=== PATIENT | female | born 1980 | race Caucasian/White ===

== ENCOUNTER 2019-02-17 21:29 | Emergency (ER) | payer MEDICAID, SELFPAY ==
[2019-02-17 21:31] VITALS: BP 156/94; PULSE 67; RESP 18; TEMP 36.6; O2SAT 99; BMI 44.2
--- NOTE | 2019-02-17 21:45 | CT_ITS ---
STUDY: CT ABDOMEN AND PELVIS WITHOUT CONTRAST REASON FOR EXAM: Female, 38 years old. Right flank pain RADIATION DOSAGE (If Supplied By Facility): CTDIvol = ( 22.23 ) mGy, DLP = ( 1188.42 ) mGycm TECHNIQUE: Transaxial images were obtained from the dome of the diaphragm to the symphysis pubis without oral contrast, and without intravenous contrast. Sagittal and coronal images were reconstructed. Individualized dose optimization techniques were used for this CT. COMPARISON: None. FINDINGS: The visualized lung bases demonstrate granulomatous nodules. The visualized portions of the heart are within normal limits. Enlarged liver. Normal gallbladder and extrahepatic biliary system. Normal spleen. Normal pancreas. Normal bilateral adrenal glands. 5 mm lower pole nonobstructive stone in the right kidney. 3 mm lower pole nonobstructive stone in the left kidney. Normal visualized stomach. Normal small intestine. Normal colon. The appendix is visualized and appears normal. Normal abdominal aorta. Normal inferior vena cava. Normal retroperitoneum. Normal urinary bladder. 3.5 cm fatty umbilical hernia Normal osseous structures. CT/Abdomen/Pelvis without Cont IMPRESSION: Nonobstructive bilateral renal calculi. Fatty umbilical hernia. Enlarged liver. Electronically Signed: Ajay Gallego DO at 22:34 EST Tel [phone], Service support ,
--- NOTE | 2019-02-17 21:57 | ED.DCSUM_ITS ---
- ER Visit Summary Date of Service: 02/17/19 Chief Complaint: Flank pain History of Present Illness: The patient is a 38 F with right-sided flank pain that started suddenly today. Pain radiates down into her right groin. She has a history of kidney stones, and is concerned they are moving. She was told that on prior imaging 1 of her stones was as large as 8 mm. She has never had lithotripsy, stenting, or other procedures. She does follow with Dr. Ivey. She reports some associated nausea but denies any other GI symptoms. Denies any urinary symptoms. Denies fevers. History of hysterectomy in the past. Physical Examination: Afebrile and vital signs unremarkable. Patient is pacing in the room and appears uncomfortable. Right CVA tenderness. Right flank tenderness. Otherwise exam unremarkable. Test Results: Labs, urine, CT pending. Emergency Department Course and Treatment: Patient was treated with fluids, Toradol, Phenergan while awaiting results of imaging. White count 11.9. Metabolic panel unremarkable. Urinalysis unremarkable. No signs of infection or bleeding. CT showed an enlarged liver, but the gallbladder and ducts were unremarkable. Spleen and pancreas normal. There is nonobstructing bilateral renal calculi. No evidence of hydronephrosis or hydroureter. I do not believe these are causing her symptoms. Appendix was visualized and is normal. She has a fatty umbilical hernia. I do not believe this is contributing to her symptoms. On reevaluation, patient did not really have any improvement. She was treated with morphine and Norflex. I suspect this may be myofascial pain. Patient's work-up and vital signs are reassuring. She will be referred for outpatient care. Continue anti-inflammatories. Short course of [place]. Muscle relaxers. Return for any new or worsening issues. Treatment Plan: As above Disposition: Discharge Impression: 1. Right flank pain This note was generated with [employer] dictation software. It may contain incorrect words, spelling, and punctuation that were not noted in review of the chart prior to signing ED Disposition - Plan for ED Patient: Referrals: NOT,DEFINED [NON-STAFF] -
[2019-02-17] MEDS: 0.9% Normal Saline 1,000 ML 1000 ML IV (22:03)
[2019-02-17] MEDS: proMETHazine 25 MG/ML Syringe 6.25 MG IV (22:04)
[2019-02-17] MEDS: Ketorolac 30 MG/ML Syringe IV (22:04)
[2019-02-17 22:10] LABS: Red Blood Cells-Urine 0 SEEN /hpf (0-5)
[2019-02-17 22:13] LABS: Absolute Neutrophil Count 5.3 X10^3/uL (2.0-7.7); Basophil# 0.04 X10^3/uL; Basophil% 0.3 % (0-1); Eosinophil# 0.21 X10^3/uL; Eosinophils% 1.8 % (0-5); Hematocrit 37.4 % (37-47); Hemoglobin 12.2 g/dL (12.0-15.0); Lymphocyte % 46.4 % (19-41); Mean Corp Hgb Conc 32.6 g/dL (32-36); Mean Corpuscular Hgb 29.4 pg (27.0-32.0); Mean Corpuscular Volume 90.1 fL (81-99); Mean Platelet Vol. 10.9 fl (6.2-12.0); Monocyte# 0.82 X10^3/uL; Monocyte% 6.9 % (0-10); NRBC Flagged by Analyzer 0 % (0-5); Neutrophil # 5.26 X10^3/uL (2.7-7.7); Neutrophil % 44.4 % (47-70); POSITIVE DIFFERENTIAL YES; Platelet Count 284 K/mm3 (150-450); RBC Distribution Width CV 13.2 % (11.6-14.6); RBC Distribution Width SD 43.6 fl (35.1-43.9); Red Blood Count 4.15 M/mm3 (4.2-5.4); White Blood Count 11.9 K/mm3 (4.4-11.0)
[2019-02-17 22:15] LABS: Differential Indicated SCAN CRITERIA MET
[2019-02-17 22:15] LABS: Color, Urine Yellow (Yellow); Glucose, Dipstick Normal (Normal); Ketone-Dipstick Negative (Negative); Leukocyte Esterase-Dipstick Negative /ul (Negative); Nitrite-Dipstick Negative (Negative); Occult Blood-Urine 10 /ul (Negative); Protein-Dipstick Negative (Negative); Urine Bilirubin Dipstick Negative (Negative); Urine Clarity Clear (Clear); Urine Urobilinogen Normal (Normal)
[2019-02-17 22:23] LABS: Anion Gap 7 (5-15); BUN 14 mg/dL (7-18); BUN/Creat Ratio 23.8 RATIO (10-20); Calcium,Total 8.8 mg/dL (8.5-10.1); Chloride 108 mmol/L (98-107); Creatinine, Serum 0.59 mg/dL (0.55-1.02); EST Glomerular Filtration Rate 122 mL/min (>60); Est Glom Filt Rate - Afr Amer 148 mL/min (>60); Estimated Creatinine Clearance 107.99 ml/min; Glucose 88 mg/dL (74-106); Potassium 3.8 mmol/L (3.5-5.1); Sodium Level 141 mmol/L (136-145)
[2019-02-17 22:26] LABS: Bacteria RARE /hpf (None Seen); Mucous, Urine RARE /hpf (<or=2+); Squamous Epithelial Cells - UA 0-5 SEEN /hpf (5-10); White Blood Cells 0-5 SEEN /hpf (0-5)
[2019-02-17 22:31] LABS: Differential Comment SCANNED
--- NOTE | 2019-02-17 22:43 | DCINST.ED_ITS ---
ED Disposition - Plan for ED Patient: Instructions: FLANK PAIN, Uncertain Cause Prescriptions: cycloBENZAPRine HCl [Flexeril] 10 mg PO TID PRN #20 tab PRN Reason: Muscle Spasm Prescription Printed Hydrocodone Bitart/Apap 5-325 [[place] 5MG-325MG] 1 tab PO Q6H PRN PRN 2 Days #8 tab PRN Reason: Pain Prescription Printed Referrals: [facility] [NON-STAFF] - Additional Instructions: Follow up with [facility] if you need a PCP
[2019-02-17] MEDS: Morphine 4 MG/ML Syringe IV (22:47)
[2019-02-17] MEDS: Orphenadrine 60 MG/2 ML Ampul IM (22:48)
[2019-02-17 23:14] VITALS: BP 120/52; PULSE 60; RESP 16; O2SAT 99
== END 2019-02-17 23:15 | disposition home or self-care (01) ==
LOC: ED 22:05
PROVIDERS: Emergency Provider Emergency Medicine; Family Provider Nurse Practitioner Family; PCP Nurse Practitioner Family
DX: R10.9 Unspecified abdominal pain (principal); K42.9 Umbilical hernia without obstruction or gangrene; N20.0 Calculus of kidney; Z87.442 Personal history of urinary calculi; Z90.710 Acquired absence of both cervix and uterus; Z72.0 Tobacco use
CPT/HCPCS: 74176; 80048; 81001; 85025; 99284; J7030; A4216

== ENCOUNTER 2019-03-15 08:06 | Day surgery (SDC) | payer MEDICAID, SELFPAY ==
[2019-03-15 08:38] VITALS: BP 113/57; PULSE 66; RESP 16; TEMP 36.3; O2SAT 99; BMI 46.8
[2019-03-15] MEDS: Lactated Ringers 1,000 ML 100 ML IV (08:58)
--- NOTE | 2019-03-15 10:39 | PCM.OPRPT ---
Problem List (1) Right renal stone Status: Acute (2) Right flank pain Status: Acute Report of Operation Date of Procedure: 03/15/19 Pre-Operative Diagnosis: Right renal calculus, right flank pain Post-Operative Diagnosis: same, ureteral stricture Surgery/Procedure Performed:: cystoscopy, right ureteroscopy, right ureteral stent insertion Type of Anesthesia:: General Description of Procedure: The patient is a 38-year-old female with a right renal calculus and continued intermittent severe right flank pain. We discussed in the office that based on the CT scan the right lower pole stone may in fact be surrounded by renal cortex, and that treatment of the stone may in fact not resolve any of her intermittent pain issues. The patient is aware. She agreed to proceed with intervention to remove the right lower pole stone. Informed consent was obtained. Patient was taken to the operating room and placed on the operating room table. Anesthesia monitored the head, neck, airway, IV access and vital signs throughout the case. Once anesthesia was appropriately administered the patient was placed into dorsal lithotomy position was prepped and draped in usual sterile fashion. A cystourethroscopy revealed normal urethra and bladder mucosa with no evidence of mass, ulceration, erythema or foreign body. The ureteral orifices were located in the correct anatomic position along the area of the trigone. The right ureteral orifice was then intubated with 2 separate 0.035 glide wires. One wire was used for insertion of the flexible ureteroscope. I was able to insert the scope into the distal approximately 2 to 3 cm of the patient's right ureter. I was unable to gain any further proximal access. Decision was made to abort ureteroscopy and insert a ureteral stent. This was done with difficulty due to the narrow width of the ureter. There was curling achieved at the area of the renal pelvis as well as within the urinary bladder. During insertion of the stent, there was urine exiting the stent through the side drainage holes. At this time the urinary bladder was emptied and the case was terminated. The patient tolerated the procedure well and was taken to the recovery room in good condition. Grafts/Implants Used: 6 x 24 JJ stent - Complications none - Admit VTE Documentation VTE Present on Admission: Yes VTE Mechan Device Prophylaxis: SCD's VTE Pharm Prophylaxis ordered?: No Reason prophylaxis not ordered:: Treatment Not Indicated
[2019-03-15] MEDS: Cefazolin 2 GM in 0.9% Normal Saline 100 ML IV (10:49)
[2019-03-15 11:40] VITALS: BP 113/57; BP 121/60; PULSE 77; RESP 16; TEMP 36.8; O2SAT 97
[2019-03-15 11:45] VITALS: BP 113/57; BP 126/80; PULSE 75; RESP 16; O2SAT 98
--- NOTE | 2019-03-15 11:52 | DCINST_ITS ---
Discharge Diet: No Restrictions Discharge Activity: May not drive while taking narcotic pain medications., May Shower May resume sexual activity in: No Restrictions Call your doctor if you observe: Fever of 101 or Higher, Inability to urinate, Inability to have a bowel movement, Calf discomfort, Uncontrolled pain Allergies/Adverse Reactions: Allergies No Known Allergies Allergy (Verified 03/14/19 13:34) Medications to take at Discharge Estrogens, Conjugated [Premarin] 1.25 mg PO DAILY 02/17/19 Sertraline HCl [Zoloft] 100 mg PO DAILY 02/17/19 Cranberry Fruit Extract [Cranberry] 500 mg PO DAILY 03/14/19 Cephalexin [Keflex] 500 mg PO Q12 3 Days #6 cap 03/15/19 Oxycodone HCl/Acetaminophen [Percocet 5/325] 2 tab PO Q8H PRN PRN 7 Days #10 tab 03/15/19 Phenazopyridine HCl [Pyridium] 200 mg PO TID PRN PRN 7 Days #30 tab 03/15/19 Bad tablePrimary Care Physician: Marcia Damian NP-C [Primary Care Provider] - Test Results: Test results from this visit will be discussed in further detail at your follow- up appointment, if applicable. Proposed Discharge Date: 03/15/19
[2019-03-15 12:00] VITALS: BP 113/57; BP 122/78; PULSE 60; RESP 16; TEMP 36.6; O2SAT 98
== END 2019-03-15 12:35 | disposition home or self-care (01) ==
LOC: SDC 08:07 → AC 08:08
PROVIDERS: Family Provider Nurse Practitioner Family; PCP Nurse Practitioner Family; Referring Provider Urology; Visit Provider Urology
PROC: 0TJ98ZZ Inspection of Ureter, Via Natural or Artificial Opening Endoscopic (ICD-10-PCS; CPT 52352; principal; 2019-03-15 09:40)
DX: N20.0 Calculus of kidney (principal); N13.5 Crossing vessel and stricture of ureter without hydronephrosis; F17.200 Nicotine dependence, unspecified, uncomplicated; F41.9 Anxiety disorder, unspecified; F32.9 Major depressive disorder, single episode, unspecified
CPT/HCPCS: 52332; 76000; J7120; C2617; J2405

== ENCOUNTER 2019-03-16 19:29 | Emergency (ER) | payer MEDICAID, SELFPAY ==
[2019-03-15 08:38] VITALS: BMI 46.8
[2019-03-16 19:30] VITALS: BP 139/102; PULSE 97; RESP 16; TEMP 36.7; O2SAT 98; BMI 46.7
--- NOTE | 2019-03-16 19:53 | CT_ITS ---
STUDY: CT ABDOMEN AND PELVIS WITHOUT CONTRAST REASON FOR EXAM: Female, 38 years old. Flank pain RADIATION DOSAGE (If Supplied By Facility): CTDIvol = ( 23.21 ) mGy, DLP = ( 1217.99 ) mGycm TECHNIQUE: Transaxial images were obtained from the dome of the diaphragm to the symphysis pubis without oral contrast, and without intravenous contrast. Sagittal and coronal images were reconstructed. Individualized dose optimization techniques were used for this CT. COMPARISON: February 17, 2019. FINDINGS: 3 mm right base nodule series 2 image 2, noncalcified. The visualized portions of the heart are within normal limits. There is decreased attenuation of the liver consistent with steatosis. Ill-defined increased attenuation within the right lobe is nonspecific and incompletely characterized. Normal gallbladder and extrahepatic biliary system. Normal spleen. Normal pancreas. Normal bilateral adrenal glands. Nonobstructing right interpolar pole stone measures 7 mm. Punctate left calyceal stones are noted. Right renal stent proximal aspect coiled in the renal pelvis and distal aspect coiled in the bladder. No hydronephrosis on either side. Normal visualized stomach. Normal small intestine. Normal colon. The appendix is visualized and appears normal. Normal abdominal aorta. Normal inferior vena cava. Normal retroperitoneum. Normal urinary bladder. Normal visualized prostate gland. There is a small umbilical hernia containing fat. Normal osseous structures. CT/Abdomen/Pelvis without Cont IMPRESSION: Renal stones as above. Right renal stent in place as above. Marked hepatic steatosis with an area of relatively increased attenuation within the right liver may indicate fatty sparing consider dedicated hepatic ultrasound or MRI for further evaluation. Small noncalcified right lung base nodule. Fleischner Society Recommendations for Follow-up and Management of Nodules Smaller than 8 mm Detected Incidentally at Nonscreening CT. Nodule size < or = 4 mm: Low-Risk Patient - No follow-up needed. High-Risk Patient - Follow-up CT at 12 months; if unchanged, no further follow-up. Nodule size > 4-6 mm: Low-Risk Patient - Follow-up CT at 12 months; if unchanged, no further follow-up. High-Risk Patient - Initial follow-up CT at 6-12 months then at 18-24 months if no change. Nodule size > 6-8 mm: Low-Risk Patient - Initial follow-up CT at 6-12 months then at 18-24 months if no change. High-Risk Patient - Initial follow-up CT at 3-6 months then at 9-12 and 24 months if no change. Nodule size > 8 mm: Low-Risk Patient - Follow-up CT at around 3,9 and 24 months. Dynamic contrast-enhanced CT, PET and/or biopsy. High-Risk Patient - Same as for low-risk patient. Low-Risk = Minimal or absent history of smoking and of other known risk factors. High-Risk = History of smoking or of other known risk factors. Electronically Signed: Ortiz Mena, at 20:56 EST Tel , Service support ,
[2019-03-16 20:01] LABS: Absolute Lymphocyte Count 4.52 X10^3/uL (0.83-4.51); Absolute Neutrophil Count 9.1 X10^3/uL (2.0-7.7); Basophil# 0.07 X10^3/uL; Basophil% 0.5 % (0-1); Eosinophil# 0.21 X10^3/uL; Eosinophils% 1.4 % (0-5); Hematocrit 41.7 % (37-47); Hemoglobin 13.6 g/dL (12.0-15.0); Lymphocyte # 4.52 X10^3/ul (4.0); Lymphocyte % 30.6 % (19-41); Mean Corp Hgb Conc 32.6 g/dL (32-36); Mean Corpuscular Hgb 29.3 pg (27.0-32.0); Mean Corpuscular Volume 89.9 fL (81-99); Mean Platelet Vol. 10.7 fl (6.2-12.0); Monocyte# 0.76 X10^3/uL; Monocyte% 5.2 % (0-10); NRBC Flagged by Analyzer 0 % (0-5); Neutrophil # 9.14 X10^3/uL (2.7-7.7); POSITIVE MORPHOLOGY YES; Platelet Count 330 K/mm3 (150-450); RBC Distribution Width CV 13.1 % (11.6-14.6); RBC Distribution Width SD 43.4 fl (35.1-43.9); Red Blood Count 4.64 M/mm3 (4.2-5.4); White Blood Count 14.8 K/mm3 (4.4-11.0)
[2019-03-16 20:01] LABS: Mucous, Urine 0 SEEN /hpf (<or=2+)
[2019-03-16 20:05] LABS: Color, Urine Red (Yellow); Glucose, Dipstick Normal (Normal); Ketone-Dipstick 5 mg/dl (Negative); Leukocyte Esterase-Dipstick 25 /ul (Negative); Nitrite-Dipstick Positive (Negative); Occult Blood-Urine 250 /ul (Negative); Protein-Dipstick 100 mg/dl (Negative); Urine Clarity Turbid (Clear); Urine Urobilinogen 4 mg/dl (Normal); Urine pH 6.5 (5.0 - 8.0)
[2019-03-16] MEDS: 0.9% Normal Saline 1,000 ML 1000 ML IV (20:05)
[2019-03-16] MEDS: Ketorolac 30 MG/ML Syringe IV (20:05)
[2019-03-16 20:06] LABS: Urine Bilirubin Dipstick 3 mg/dL (Negative)
[2019-03-16] MEDS: Ondansetron 4 MG/2 ML Vial IV (20:06)
[2019-03-16] MEDS: HYDROmorphone 1 MG/ML Syringe 0.5 MG IV (20:06)
--- NOTE | 2019-03-16 20:09 | ED.DCSUM_ITS ---
History of Present Illness Chief Complaint: Other, Pain/Inj Detail of Chief Complaint: Right flank pain Informant: Patient Onset: Today Current Severity: Severe Maximum Severity: Severe Narrative: Patient had ureteroscopy performed yesterday with Dr. Dillon secondary to kidney stone. There was reported difficulty with placing the stent due to ureteral strictures. Patient states her pain was well controlled last night but had sudden worsening of pain today. She has tried oxycodone without improvement. - Past Medical History (1) Right renal stone Status: Chronic Past Medical History - Allergies and Home Meds Allergies/Adverse Reactions: Allergies No Known Allergies Allergy (Verified 03/14/19 13:34) Primary Care Physician: Marcia Damian NP-C [Primary Care Provider] - Doctors: Dr. Dillon Prior records reviewed: Yes Smoking Status: Current every day smoker Review of Systems General: Denies: Chills, Fever Eyes: Denies: Visual changes - bilaterally ENT: Denies: Bilateral ear pain Cardiovascular: Denies: Chest pain Respiratory: Denies: Dyspnea, Cough Gastrointestinal: Reports: Abdominal pain - Right flank pain, Nausea Genitourinary: Reports: Hematuria Musculoskeletal: Reports: Back pain - Right flank Skin: Denies: Rash Neurological: Denies: Headache Hematologic: Denies: Easy bruising, Easy bleeding Allergy: Denies: Uticaria Physical Exam Vital Signs/Narrative: Vital Signs Temp Pulse Resp BP Pulse Ox 03/16/19 19:30 98.1 F 97 16 139/102 H 98 Inital Vital Signs reviewed: Yes General: Well nourished, Well developed, - - Patient standing at bedside, appears uncomfortable. Head: Normocephalic, Atraumatic ENT: Moist mucous membranes Neck: Supple Cardiovascular: Regular rate, Regular rhythm Respiratory: No distress, CTA bilaterally Abdomen: Soft, Nontender Back: CVA tenderness Extremities: Nontender Skin: Normal color Neurological: Alert, Oriented x3 Psychological: - - Anxious Diagnostic/Tx/Re-eval Impressions Abdomen/Pelvis CT 03/16/19 19:53 IMPRESSION: Renal stones as above. Right renal stent in place as above. Marked hepatic steatosis with an area of relatively increased attenuation within the right liver may indicate fatty sparing consider dedicated hepatic ultrasound or MRI for further evaluation. Small noncalcified right lung base nodule. Fleischner Society Recommendations for Follow-up and Management of Nodules Smaller than 8 mm Detected Incidentally at Nonscreening CT. Nodule size < or = 4 mm: Low-Risk Patient - No follow-up needed. High-Risk Patient - Follow-up CT at 12 months; if unchanged, no further follow-up. Nodule size > 4-6 mm: Low-Risk Patient - Follow-up CT at 12 months; if unchanged, no further follow-up. High-Risk Patient - Initial follow-up CT at 6-12 months then at 18-24 months if no change. Nodule size > 6-8 mm: Low-Risk Patient - Initial follow-up CT at 6-12 months then at 18-24 months if no change. High-Risk Patient - Initial follow-up CT at 3-6 months then at 9-12 and 24 months if no change. Nodule size > 8 mm: Low-Risk Patient - Follow-up CT at around 3,9 and 24 months. Dynamic contrast-enhanced CT, PET and/or biopsy. High-Risk Patient - Same as for low-risk patient. Low-Risk = Minimal or absent history of smoking and of other known risk factors. High-Risk = History of smoking or of other known risk factors. Electronically Signed: Ortiz Mena, at 20:56 EST Tel , Service support , 03/16/19 19:53 Abdomen/Pelvis without Cont [CT] Stat Laboratory Results 03/16/19 03/16/19 03/16/19 19:47 19:47 19:53 WBC 14.8 H RBC 4.64 Hgb 13.6 Hct 41.7 MCV 89.9 MCH 29.3 MCHC 32.6 RDW Std Deviation 43.4 RDW Coeff of [place] 13.1 Plt Count 330 MPV 10.7 Immature Gran % (Auto) 0.300 Neut % (Auto) 62.0 Lymph % (Auto) 30.6 [place] % (Auto) 5.2 Eos % (Auto) 1.4 Baso % (Auto) 0.5 Absolute Neuts (auto) 9.1 H Absolute Lymphs (auto) 4.52 H Nucleated RBC % 0 Differential Comment SCANNED Sodium 141 Potassium 4.3 Chloride 108 H Carbon Dioxide 27.0 Anion Gap 6 BUN 14 Creatinine 0.75 Estim Creat Clear Calc 84.96 Est GFR (MDRD) Af Amer 112 Est GFR (MDRD) Non-Af 92 BUN/Creatinine Ratio 18.7 Glucose 103 Calcium 8.8 Urine Color Red Urine Clarity Turbid Urine pH 6.5 Ur Specific [place] 1.020 Urine Protein 100 H Urine Glucose (UA) Normal Urine Ketones 5 H Urine Occult Blood 250 H Urine Nitrite Positive H Urine Bilirubin 3 H Urine Urobilinogen 4 H Ur Leukocyte Esterase 25 H Urine RBC > 100 SEEN Urine WBC 0-5 SEEN Ur Squamous Epith Cells 0-5 SEEN Urine Bacteria 1+ Urine Mucus 0 SEEN - Medical Decision Making Patient was given 0.5 mg of Dilaudid, 30 mg of Toradol, 4 mg of Zofran, and IV fluids. On repeat evaluation she is much improved. I spoke with Dr. Dillon. Urine will be sent for culture. Patient already has a couple days of antibiotics that she is taking. Patient be given a prescription for Toradol and will continue her oxycodone at home. ED Disposition - Plan for ED Patient: Disposition: Home or Assisted Living Diagnosis: Flank pain Instructions: FLANK PAIN, Uncertain Cause Prescriptions: Ketorolac [Toradol] 10 mg PO Q6H #14 tablet Referrals: Agatha Dillon MD [STAFF PHYSICIAN] - Keep Kevin appointment
[2019-03-16 20:15] LABS: Bacteria 1+ /hpf (None Seen); Red Blood Cells-Urine > 100 SEEN /hpf (0-5); Squamous Epithelial Cells - UA 0-5 SEEN /hpf (5-10); White Blood Cells 0-5 SEEN /hpf (0-5)
[2019-03-16 20:23] LABS: Differential Comment SCANNED; Differential Indicated SCAN CRITERIA MET
[2019-03-16 20:27] LABS: Anion Gap 6 (5-15); BUN 14 mg/dL (7-18); BUN/Creat Ratio 18.7 RATIO (10-20); Calcium,Total 8.8 mg/dL (8.5-10.1); Chloride 108 mmol/L (98-107); Creatinine, Serum 0.75 mg/dL (0.55-1.02); EST Glomerular Filtration Rate 92 mL/min (>60); Est Glom Filt Rate - Afr Amer 112 mL/min (>60); Estimated Creatinine Clearance 84.96 ml/min; Glucose 103 mg/dL (74-106); Potassium 4.3 mmol/L (3.5-5.1); Sodium Level 141 mmol/L (136-145)
[2019-03-16] MEDS: HYDROmorphone 0.5 MG/0.5 ML SYRINGE IV (21:48)
[2019-03-16 22:09] VITALS: BP 117/81; PULSE 71; RESP 14
== END 2019-03-16 22:10 | disposition home or self-care (01) ==
PROVIDERS: Emergency Provider Emergency Medicine; Family Provider Nurse Practitioner Family; PCP Nurse Practitioner Family
DX: R10.9 Unspecified abdominal pain (principal); N20.0 Calculus of kidney; R91.1 Solitary pulmonary nodule; F17.200 Nicotine dependence, unspecified, uncomplicated
CPT/HCPCS: 74176; 80048; 81001; 85025; 87086; 99282; J7030; A4216; J2405

== ENCOUNTER 2019-04-26 05:44 | Day surgery (SDC) | payer MEDICAID, SELFPAY ==
[2019-04-26] VITALS (9 sets, daily range): BP systolic 104–149; BP diastolic 48–87; PULSE 62–77; RESP 16–18; TEMP 36.1–36.4; O2SAT 93–98; BMI 46.7
[2019-04-26] MEDS: Lactated Ringers 1,000 ML 100 ML IV (06:21)
[2019-04-26] MEDS: Cefazolin 2 GM in 0.9% Normal Saline 100 ML IV (07:36)
[2019-04-26] MEDS: Lubricating Jelly 60 GM Tube 30 GM TOPICAL (07:50)
--- NOTE | 2019-04-26 08:46 | DCINST_ITS ---
Discharge Diet: No Restrictions Discharge Activity: May not drive while taking narcotic pain medications. May resume sexual activity in: 1 week Call your doctor if you observe: Fever of 101 or Higher, Inability to urinate, Inability to have a bowel movement, Uncontrolled pain Allergies/Adverse Reactions: Allergies No Known Allergies Allergy (Verified 04/26/19 06:12) Medications to take at Discharge Estrogens, Conjugated [Premarin] 1.25 mg PO DAILY 02/17/19 Sertraline HCl [Zoloft] 100 mg PO DAILY 02/17/19 Cranberry Fruit Extract [Cranberry] 500 mg PO BID 03/14/19 Cephalexin [Keflex] 500 mg PO Q12 3 Days #6 cap 04/26/19 Hydrocodone Bitart/Apap 5-325 [[place] 5MG-325MG] 1 tab PO Q4H PRN PRN 3 Days #5 tab 04/26/19 The following prescriptions were given: Cephalexin [Keflex] 500 mg PO Q12 3 Days #6 cap Prescription Printed Hydrocodone Bitart/Apap 5-325 [[place] 5MG-325MG] 1 tab PO Q4H PRN PRN 3 Days #5 tab PRN Reason: Pain Prescription Printed Primary Care Physician: Marcia Damian NP-C [Primary Care Provider] - Test Results: Test results from this visit will be discussed in further detail at your follow- up appointment, if applicable. Please Follow Up With: Agatha Dillon MD When: call for appt to be seen or Thursday Proposed Discharge Date: 04/26/19
--- NOTE | 2019-04-26 08:47 | PCM.OPRPT ---
Problem List (1) Right renal stone Status: Chronic (2) Right flank pain Status: Acute Report of Operation Date of Procedure: 04/26/19 Pre-Operative Diagnosis: right renal stone, right flank pain Post-Operative Diagnosis: same Surgery/Procedure Performed:: cystoscopy, right ureteroscopy, laser lithotripsy and right ureteral stent change Type of Anesthesia:: General Specimen's removed: none Description of Procedure: The patient is a 38-year-old female with a right renal calculus and right flank pain. She presented to the operating room in March approximately 6 weeks ago for ureteroscopy and laser lithotripsy. At that time there was concern that the stone was surrounded by renal cortex and that is why the decision was made to proceed with ureteroscopy for evaluation and treatment. At that time I was unable to gain access to the kidney secondary to significant narrowing of the right ureter. Because of this, the ureteral stent was left in situ for 6 weeks to dilate the ureter. She now presents for definitive treatment. Informed consent was obtained. The patient was taken to the operating room and placed on the operating room table. Anesthesia monitored the head, neck, airway, IV access and vital signs throughout the case. Once anesthesia was appropriately administered, the patient was prepped and draped in usual sterile fashion. A cystourethroscopy was performed and the stent was identified. A 0.035 Glidewire was passed alongside the stent which was then removed. A second Glidewire was then passed alongside the first. This was used as a safety wire. The flexible ureteroscope was passed over 1 of the 0.035 glide wires and easily gained access to the renal pelvis. Every calyx was directly visualized, and a 3mm stone fragment was identified in the midpole. This was not the stone that was seen on CT evaluation. It was lasered into small fragments that were unable to be removed secondary to small size. The remainder of the kidney showed no evidence of calcification. At this time the ureteroscope was removed, and the cystoscope was used to replace a 6 [place] 24 cm double-J stent. Good curling was achieved in the renal pelvis as well as the urinary bladder. The patient's bladder was emptied and the case was terminated. She was taken to the recovery room in good condition. There were no complications during the procedure. Grafts/Implants Used: 6x24 JJ stent - Complications none - Admit VTE Documentation VTE Present on Admission: Yes VTE Mechan Device Prophylaxis: SCD's VTE Pharm Prophylaxis ordered?: No Reason prophylaxis not ordered:: Treatment Not Indicated
== END 2019-04-26 10:21 | disposition home or self-care (01) ==
LOC: SDC 05:44 → AC 05:45
PROVIDERS: Family Provider Nurse Practitioner Family; PCP Nurse Practitioner Family; Referring Provider Urology; Visit Provider Urology
PROC: 0TJ98ZZ Inspection of Ureter, Via Natural or Artificial Opening Endoscopic (ICD-10-PCS; CPT 52352; principal; 2019-04-26 07:20)
DX: N20.0 Calculus of kidney (principal); F17.200 Nicotine dependence, unspecified, uncomplicated; M54.5 Low back pain
CPT/HCPCS: 52356; 76000; J7120; C2617; J2405

== ENCOUNTER → 2019-10-28 08:44 | Outpatient (CLI) | payer MEDICAID, SELFPAY ==
[2019-04-26 06:13] VITALS: BMI 46.7
--- NOTE | 2019-10-28 08:51 | RAD_ITS ---
STUDY: X-RAY - ABDOMEN/PELVIS REASON FOR EXAM: Female, 39 years old. Flank pain TECHNIQUE: AP supine and upright views of the abdomen and pelvis. COMPARISON: None. FINDINGS: Normal visualized lung bases. There is an unremarkable bowel gas pattern. There is no demonstrated free abdominal air. The visualized liver, spleen and kidneys are grossly normal in size and morphology. Normal soft tissue structures. Normal visualized osseous structures. RAD/Abdomen Single View IMPRESSION: Normal x-ray examination of the abdomen and pelvis. Electronically Signed: Mikhail Diaz MD at 9:51 EDT , Service support ,
== END ==
PROVIDERS: PCP Nurse Practitioner Family; Referring Provider Urology; Visit Provider Urology
DX: N20.0 Calculus of kidney (principal)
CPT/HCPCS: 74018

== ENCOUNTER 2024-10-10 14:00 | Emergency (ER) | payer OTHER, SELFPAY ==
[2024-10-10 14:02] VITALS: BP 134/90; PULSE 80; RESP 18; TEMP 36.4; O2SAT 99; BMI 51.2
[2024-10-10] MEDS: DiphenhydrAMINE 50 MG/ML Syringe 25 MG IV (15:13)
[2024-10-10 16:10] VITALS: BP 132/96; PULSE 86
[2024-10-10 16:39] VITALS: BP 130/85; PULSE 84; RESP 16; TEMP 36.9; O2SAT 100
== END 2024-10-10 16:41 | disposition home or self-care (01) ==
PROVIDERS: Emergency Provider Emergency Medicine; Visit Provider Emergency Medicine
DX: R51.9 Headache, unspecified (principal); R03.0 Elevated blood-pressure reading, without diagnosis of hypertension; Z87.891 Personal history of nicotine dependence; R20.2 Paresthesia of skin
CPT/HCPCS: 70450; 96374; 96375; 96376; 99283; A4216